=== PATIENT | female | born 1985 | race Caucasian/White ===

== ENCOUNTER → 2018-04-03 13:42 | Outpatient (CLI) | payer BC, SELFPAY ==
[2018-04-08 14:21] LABS: HPV Reflexed? NOT INDICATED
== END ==
PROVIDERS: Visit Provider Obstetrics & Gynecology
DX: Z12.4 Encounter for screening for malignant neoplasm of cervix (principal)
CPT/HCPCS: 88175; G0145

== ENCOUNTER → 2019-10-01 13:22 | Outpatient (CLI) | payer BC, SELFPAY ==
[2017-03-18 23:53] VITALS: BMI 28.4
[2019-10-01 15:40] LABS: Absolute Lymphocyte Count 1.91 X10^3/uL (0.83-4.51); Absolute Neutrophil Count 8.7 X10^3/uL (2.0-7.7); Basophil# 0.05 X10^3/uL; Basophil% 0.4 % (0-1); Eosinophils% 1.7 % (0-5); Hematocrit 41.7 % (37-47); Hemoglobin 13.7 g/dL (12.0-15.0); Lymphocyte # 1.91 X10^3/ul (4.0); Lymphocyte % 16.7 % (19-41); Mean Corp Hgb Conc 32.9 g/dL (32-36); Mean Corpuscular Hgb 30.4 pg (27.0-32.0); Mean Corpuscular Volume 92.7 fL (81-99); Mean Platelet Vol. 9.8 fl (6.2-12.0); Monocyte# 0.54 X10^3/uL; Monocyte% 4.7 % (0-10); NRBC Flagged by Analyzer 0 % (0-5); Neutrophil % 76.2 % (47-70); Platelet Count 236 K/mm3 (150-450); RBC Distribution Width CV 12.2 % (11.6-14.6); RBC Distribution Width SD 41.5 fl (35.1-43.9); White Blood Count 11.4 K/mm3 (4.4-11.0)
[2019-10-01 15:47] LABS: Color, Urine Yellow (Yellow); Glucose, Dipstick Normal (Normal); Ketone-Dipstick Negative (Negative); Leukocyte Esterase-Dipstick 25 /ul (Negative); Nitrite-Dipstick Negative (Negative); Occult Blood-Urine Negative /ul (Negative); Protein-Dipstick Negative (Negative); Specific Gravity, Urine 1.025 (1.002-1.030); Urine Bilirubin Dipstick Negative (Negative); Urine Clarity Turbid (Clear); Urine Urobilinogen Normal (Normal)
[2019-10-01 16:04] LABS: Thyroid Stim Hormone (TSH) 1.09 uIU/mL (0.358-3.74)
[2019-10-01 16:31] LABS: Amphetamine Urine VISTA NEGATIVE (<1000 ng/mL); Barbiturate Urine VISTA NEGATIVE (< 200 ng/mL); Benzodiazepine Urine VISTA NEGATIVE (< 200 ng/mL); Cocaine Urine VISTA NEGATIVE (< 300 ng/mL); Ecstacy Urine VISTA NEGATIVE (< 500 ng/mL); Methadone Urine VISTA NEGATIVE (< 300 ng/mL); PCP Urine VISTA NEGATIVE (< 25 ng/mL); THC Urine VISTA NEGATIVE (< 50 ng/mL); Vista UDS pH Range 5
[2019-10-01 16:33] LABS: HIV - WCH Non-Reactive (Nonreactive); Hepatitis B Surface Antigen Non-Reactive (Nonreactive); Hepatitis C Antibody Non-Reactive (Nonreactive)
[2019-10-02 02:05] LABS: Prenatal RPR NONREACTIVE (NONREACTIVE)
== END ==
PROVIDERS: Visit Provider Obstetrics & Gynecology
DX: Z11.3 Encounter for screening for infections with a predominantly sexual mode of transmission (principal)
CPT/HCPCS: 36415; 80307; 81002; 84443; 85025; 86703; 86762; 86803; 87340

== ENCOUNTER → 2020-02-18 10:12 | Outpatient (CLI) | payer BC, SELFPAY ==
[2017-03-18 23:53] VITALS: BMI 28.4
[2020-02-18 11:39] LABS: Glucose Challenge Gest 1H 50g 91 mg/dL (70-140)
[2020-02-18 11:40] LABS: Hematocrit 34.6 % (37-47); Hemoglobin 11.6 g/dL (12.0-15.0); Mean Corp Hgb Conc 33.5 g/dL (32-36); Mean Corpuscular Volume 95.3 fL (81-99); Mean Platelet Vol. 9.9 fl (6.2-12.0); Platelet Count 202 K/mm3 (150-450); RBC Distribution Width CV 13.1 % (11.6-14.6); Red Blood Count 3.63 M/mm3 (4.2-5.4)
== END ==
PROVIDERS: Visit Provider Obstetrics & Gynecology
DX: Z34.83 Encounter for supervision of other normal pregnancy, third trimester (principal)
CPT/HCPCS: 36415; 82950; 85027

== ENCOUNTER → 2020-04-13 | Outpatient (CLI) | payer BC, SELFPAY ==
[2017-03-18 23:53] VITALS: BMI 28.4
== END | disposition home or self-care (01) ==
PROVIDERS: Visit Provider Obstetrics & Gynecology
DX: Z34.83 Encounter for supervision of other normal pregnancy, third trimester (principal); Z36.85 Encounter for antenatal screening for Streptococcus B
CPT/HCPCS: 87081

== ENCOUNTER 2020-05-06 17:15 | Inpatient (IN) | payer BC, SELFPAY ==
[2020-05-06] VITALS (34 sets, daily range): BP systolic 104–144; BP diastolic 52–85; PULSE 75–100; RESP 16; TEMP 36.9–37.2; O2SAT 97–99; BMI 29.8
--- NOTE | 2020-05-06 17:22 | PCM.HPOB.BLA ---
History and Physical Date of Admission: 05/06/20 Chief complaint: Contractions History of present illness: 34-year-old G4, P3 at 39 weeks and 4 days with LUIS 05/10/2019 1 x 12-week ultrasound arrives with contractions. Denies headache, visual changes, nausea vomiting, chest pain, shortness of breath, right upper quadrant pain. Patient states good movement. Obstetric history: G1 term primary G2: Term G3: Term G4: Current Past medical history: Anxiety Medications: Zoloft, vitamin Past surgical history: Primary , wisdom teeth extraction Allergies: Paxil Social history: Denies smoking, alcohol use, drug use Family history: Denies a history of DVT or PE Review of systems: Besides the above pertinent positives a full review of systems was performed and found to be negative Physical exam: Vital Signs Pulse BP 05/06/20 16:20 99 135/85 H General: Normal-appearing no acute distress HEENT: Normocephalic atraumatic no cervical lymphadenopathy Cardiac/respiratory: Nonlabored breathing, no use of accessory muscles Abdomen: Soft, nontender, gravid Extremities: No peripheral edema normal peripheral pulses Neurologic: Grossly intact Psych: Normal affect normal demeanor nonpressured speech Assessment plan: 34-year-old G4, P3 at 39 weeks and 4 days in labor, for epidural and AROM -Admit wounds failure -CEFM -GBS negative -Routine orders -Anesthesia to see
[2020-05-06] MEDS: Lactated Ringers 1,000 ML 999 ML IV (17:35)
[2020-05-06 17:47] LABS: Absolute Lymphocyte Count 1.97 X10^3/uL (0.83-4.51); Basophil# 0.05 X10^3/uL; Basophil% 0.3 % (0-1); Eosinophil# 0.23 X10^3/uL; Eosinophils% 1.5 % (0-5); Hematocrit 33.3 % (37-47); Hemoglobin 11.2 g/dL (12.0-15.0); Lymphocyte # 1.97 X10^3/ul (4.0); Lymphocyte % 12.7 % (19-41); Mean Corp Hgb Conc 33.6 g/dL (32-36); Mean Corpuscular Hgb 31.9 pg (27.0-32.0); Mean Corpuscular Volume 94.9 fL (81-99); Mean Platelet Vol. 9.9 fl (6.2-12.0); Monocyte# 0.96 X10^3/uL; Monocyte% 6.2 % (0-10); NRBC Flagged by Analyzer 0 % (0-5); Neutrophil # 11.99 X10^3/uL (2.7-7.7); Neutrophil % 77.6 % (47-70); Platelet Count 209 K/mm3 (150-450); RBC Distribution Width SD 44.9 fl (35.1-43.9); Red Blood Count 3.51 M/mm3 (4.2-5.4); White Blood Count 15.5 K/mm3 (4.4-11.0)
[2020-05-06] MEDS: Lactated Ringers 500 ML 200 ML IV (18:36)
--- NOTE | 2020-05-06 19:27 | PN.OBGYN_ITS ---
Subjective: Now comfortable with epidural - Physical Exam Vitals/I&O's: Vital Signs Temp Pulse BP Pulse Ox 98.5 F 80 104/62 99 05/06/20 19:18 05/06/20 19:16 05/06/20 19:16 05/06/20 19:13 Weight: 179 lb 6.4 oz Body Mass Index (BMI) 29.8 General: Alert, Oriented x3, Cooperative, No apparent distress HEENT: Atraumatic, PERRLA, Normocephalic Oral: Moist Mucosa Neck: Supple Extremities: No clubbing, No cyanosis, No edema Neurological: Neuro grossly intact Psych/Mental Status: Normal Affect, Appropriate, Alert and oriented to time, place, person, mood and affect Microbiology Past 72 Hours 05/06/20 17:35 Mucosa - Nose SARS-CoV-2 Antigen (Rapid) - Final Laboratory Results 05/06/20 17:35: WBC 15.5 H, RBC 3.51 L, Hgb 11.2 L, Hct 33.3 L, MCV 94.9, MCH 31.9, MCHC 33.6, RDW Std Deviation 44.9 H, RDW Coeff of Stone 13.0, Plt Count 209, MPV 9.9, Immature Gran % (Auto) 1.700 H, Neut % (Auto) 77.6 H, Lymph % (Auto) 12.7 L, [place] % (Auto) 6.2, Eos % (Auto) 1.5, Baso % (Auto) 0.3, Absolute Neuts (auto) 12.0 H, Absolute Lymphs (auto) 1.97, Nucleated RBC % 0 05/06/20 17:35: Blood Type A POSITIVE, Antibody Screen NEGATIVE Current Medications Acetaminophen (Acetaminophen 500 Mg Tablet) 500 - 1,000 mg PO Q6H PRN PRN PRN Reason: Pain Score 1-3 Al Hydroxide/Mg Hydroxide (Mag Hydrox/Al Hydrox/Simeth 30 Ml Udc) 15 - 30 ml PO Q4H PRN PRN PRN Reason: INDIGESTION Citric Acid/Sodium Citrate (Sodium Citrate/Citric Acid 30 Ml Udc) 30 ml PO X1 PRN PRN Reason: Section Ephedrine Sulfate (Ephedrine Sulfate 50 Mg/Ml Ampul) 10 mg IV Q10M PRN PRN Reason: hypotension Ephedrine Sulfate (Ephedrine Sulfate 50 Mg/Ml Ampul) 10 mg IM Q30M PRN PRN Reason: hypotension Fentanyl Citrate (Fentanyl 100 Mcg/2 Ml Ampul) 25 - 50 mcg IV Q2H PRN PRN PRN Reason: Pain Score 4-10 Fentanyl/Bupivacaine/Sodium Chlor (Fentanyl-Bupivacaine (Epidural) 100 Ml Bag) 0 ml EPIDURAL UD ZOE; Protocol Lactated Ringer's () 500 mls @ 999 mls/hr IV .Q31M PRN PRN Reason: Epidural Lactated Ringer's () 500 mls @ 999 mls/hr IV .Q31M PRN PRN Reason: Corrective Measures Lactated Ringer's () 1,000 mls @ 50 mls/hr IV .Q20H ZOE Nalbuphine HCl (Nalbuphine 10 Mg/Ml Ampul) 5 mg IV Q3H PRN PRN PRN Reason: ITCHING Naloxone HCl (Naloxone 0.4 Mg/Ml Syringe) 0.02 mg IV Q1M PRN PRN Reason: RR <10 and pt unresponsive Ondansetron HCl (Ondansetron 4 Mg/2 Ml Vial) 4 mg IV Q4H PRN PRN PRN Reason: NAUSEA Prochlorperazine Edisylate (Prochlorperazine 10 Mg/2 Ml Vial) 10 mg IV Q6H PRN PRN PRN Reason: NAUSEA Sodium Chloride (0.9% Saline Lock 10 Ml Syringe) 10 - 40 ml IV X1 PRN PRN Reason: SALINE FLUSH Medical Necessity - Tobacco Use Smoking Status: Never smoker Assessment/Plan All Active Problems (vaginal after ) (Acute) 39 weeks gestation of (Acute) Encounter for trial of labor (Acute) Patient seen and examined. AROM clear fluid. heart tracing 130s/moderate variability/positive accelerations/negative decelerations toco every 2 to 5 minutes category 1 tracing. We will continue current management and augment with Pitocin if needed
[2020-05-06] MEDS: fentaNYL-bupivacaine (epidural) 100 ML BAG EPIDURAL (19:36)
[2020-05-06] MEDS: Lactated Ringers 1,000 ML 200 ML IV (19:42)
[2020-05-06] MEDS: Oxytocin 30 units/NS 500 ml 30 UNITS/500 ML IV.SOLN 334 UNITS IV (20:19)
--- NOTE | 2020-05-06 20:26 | PCM.OPRPT ---
Vaginal Delivery Date of Procedure: 05/06/20 Pre-Operative Diagnosis: Term, labor, trial of labor after section Post-Operative Diagnosis: Term, labor, vaginal after Type of Anesthesia: Epidural Description of Procedure: of a viable female infant, vertex PAUL. Head and shoulders delivered with ease. Cord cut and clamped. Baby handed off to nursing. Placenta delivered via cord traction and fundal massage. No lacerations noted. EBL 250 cc Apgars 8/9
--- NOTE | 2020-05-06 20:28 | DCINST_ITS ---
Discharge Diet: No Restrictions Discharge Activity: Return to Normal Activity, May Drive, May Shower May resume sexual activity in: 4-6 weeks Call your doctor if your incision/area has: Continuous Slow Oozing, Foul Smelling Discharge Call your doctor if you observe: Fever of 101 or Higher, Shortness of breath, Chest pain Additional Instructions: If you experience any of the following, contact your healthcare provider. * Bleeding that soaks a pad every hour for 2 hours * Fever 100.4 or higher * Unrelieved incision or abdominal pain * Swelling, redness, discharge or bleeding from your incision or episiotomy site * Your incision begins to separate * Problems urinating (including inability to urinate or burning while urinating). * Visual changes * Severe headache * Flu-like symptoms * Pain or redness in one of both of your breasts * Pain, warmth, tenderness or swelling in your legs, especially the calf area * Frequent nausea and vomiting * Symptoms of depression or anxiety If you experience any of the following, call 911 or go to the nearest Emergency Room. * Chest pain * Problems breathing * Seizure activity * Partial or complete paralysis of a body part, slurred speech, weakness or drooping of the face, or a sudden inability to walk or hold your balance Allergies/Adverse Reactions: Allergies cetyl alcohol [From Cetaphil] Allergy (Verified 05/06/20 19:38) Hives paraben [From Cetaphil] Allergy (Verified 05/06/20 19:38) Hives pineapple Allergy (Verified 05/06/20 19:38) Vomiting propylene glycol [From Cetaphil] Allergy (Verified 05/06/20 19:38) Hives skin cleanser [From Cetaphil] Allergy (Verified 05/06/20 19:38) Hives soap [From Cetaphil] Allergy (Verified 05/06/20 19:38) Hives sodium lauryl sulfate [From Cetaphil] Allergy (Verified 05/06/20 19:38) Hives stearyl alcohol [From Cetaphil] Allergy (Verified 05/06/20 19:38) Hives Medications to take at Discharge Vits [Prenatabs FA ] 1 tablet PO DAILY 01/26/13 Sertraline HCl [Zoloft] 25 mg PO 05/06/20 Please Follow Up With: Wilian Cotto MD When: 4 to 6 weeks Primary Care Physician: Care Physician,No Primary [Primary Care Provider] - Test Results: Test results from this visit will be discussed in further detail at your follow- up appointment, if applicable.
[2020-05-07] VITALS (10 sets, daily range): BP systolic 114–130; BP diastolic 64–81; PULSE 65–82; RESP 16–20; TEMP 36.4–36.8; O2SAT 97–98
[2020-05-07] MEDS: Ibuprofen 600 MG Tablet PO (08:04)
--- NOTE | 2020-05-07 10:17 | PCM.PN.OB ---
Subjective: No overnight complaints. Pain well controlled. Minimal lochia. - Physical Exam Vitals/I&O's: Vital Signs Temp Pulse Resp BP Pulse Ox 98.2 F 77 18 114/64 97 05/07/20 08:15 05/07/20 08:15 05/07/20 08:15 05/07/20 08:15 05/07/20 08:15 Oxygen Delivery Method Room Air Weight: 179 lb 6.4 oz Body Mass Index (BMI) 29.8 Intake and Output for Last 24 Hours 05/05/20 05/06/20 05/07/20 23:59 23:59 23:59 Intake Total 1753.33 / 1753.33 Output Total 300 / 300 950 / 950 Balance 1453.33 / 1453.33 -950 / -950 General: Alert, Oriented x3, Cooperative, No apparent distress HEENT: Atraumatic, Normocephalic Oral: Moist Mucosa Neck: Supple Abdomen: Soft, Non Tender, - - Uterus firm and below umbilicus Extremities: No clubbing, No cyanosis, No edema Neurological: Neuro grossly intact Psych/Mental Status: Normal Affect, Appropriate, Alert and oriented to time, place, person, mood and affect Microbiology Past 72 Hours 05/06/20 17:35 Mucosa - Nose SARS-CoV-2 Antigen (Rapid) - Final Laboratory Results 05/06/20 17:35: WBC 15.5 H, RBC 3.51 L, Hgb 11.2 L, Hct 33.3 L, MCV 94.9, MCH 31.9, MCHC 33.6, RDW Std Deviation 44.9 H, RDW Coeff of Stone 13.0, Plt Count 209, MPV 9.9, Immature Gran % (Auto) 1.700 H, Neut % (Auto) 77.6 H, Lymph % (Auto) 12.7 L, [place] % (Auto) 6.2, Eos % (Auto) 1.5, Baso % (Auto) 0.3, Absolute Neuts (auto) 12.0 H, Absolute Lymphs (auto) 1.97, Nucleated RBC % 0 05/06/20 17:35: Blood Type A POSITIVE, Antibody Screen NEGATIVE Current Medications Acetaminophen (Acetaminophen 500 Mg Tablet) 1,000 mg PO Q8H PRN PRN PRN Reason: Pain Score 1-3 Bisacodyl (Bisacodyl 10 Mg Suppository) 10 mg RC UD PRN PRN Reason: If no BM Dibucaine (Dibucaine 30 Gm Tube) 1 applic TOPICAL TID PRN PRN; Protocol PRN Reason: Discomfort Hydrocortisone (Hydrocortisone 2.5% Crm) 1 applic TOPICAL TID PRN PRN; Protocol PRN Reason: Discomfort Ibuprofen (Ibuprofen 600 Mg Tablet) 600 mg PO Q6H PRN PRN PRN Reason: Pain Score 1-3 Last Admin: 05/07/20 08:04 Dose: 600 mg Documented by: Ondansetron HCl (Ondansetron 4 Mg/2 Ml Vial) 4 mg IV Q4H PRN PRN PRN Reason: Nausea Senna/Docusate Sodium (Senna/Docusate Sodium 1 Tablet) 1 - 2 tablet PO DAILY PRN PRN PRN Reason: Constipation Simethicone (Simethicone 80 Mg Tablet) 80 mg PO PCHS PRN PRN Reason: Indigestion/Stomach pain Sodium Chloride (0.9% Saline Lock 10 Ml Syringe) 5 - 15 ml IV UD PRN PRN Reason: SALINE FLUSH Medical Necessity - Tobacco Use Smoking Status: Never smoker Assessment/Plan All Active Problems (vaginal after ) (Acute) 39 weeks gestation of (Acute) Encounter for trial of labor (Acute) day 1. History of depression, on Zoloft. 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
--- NOTE | 2020-05-07 16:30 | CASEMGMT ---
Social Work Note - Labor and Delivery Unit Social Work Brief Assessment completed. Refer documentation below for further details. Date of Referral/Notification: 05.07.2020 Time of Referral: 0015 Referred By: Dr. Wilian Cotto Reason for Referral: History of PPD, anxiety, currently on Zoloft. Date of Intervention: 05.07.2020 Time of Intervention: 1630 Informant: Medical record and patient/mother of baby (MOB) Pat Saba; father of baby (FOB) Ryan Saba also present for part of conversation. History: ANITA is a 34 year old female, to 4 after delivering baby girl Puja Saba admission. care started in the first trimester and regular thereafter. FOB is the father to all four children. Besides Puja, the other children at home are Samreen (born 09/2014), Flaquita (born 01/2013), and Jatin (born 02/2017). MOB reports home situation is safe and adequate. FOB works in finance at [employer]. MOB is college educated, with a degree in teaching. At this point MOB works stays at home. No issues with transportation. MOB reports to have needed supplies for baby including a safe sleep space, car seat, clothing, diapers, wipes. MOB reports to have a good support system from (denies any form of abuse in this relationship), from in-laws who live locally, and then from MOB?s family who live out of town near [place], [place]. Additional support from friends and tenriism. MOB denies any history of substance use or abuse issues. Negative maternal drug screen on 09.30.2020. MOB with history of depression, anxiety, and depression and anxiety. Has been to various counselors in the past, with the most recent being Sushma Castell[facility] at [facility]; not current with counseling. MOB reports to be on Zoloft, which was initiated during this . MOB reports went on the Zoloft after Jatin was born, found this helpful, then when went off of the medication struggled. MOB reports initiation of the medication again during has made a positive impact. MOB endorses having a lot of worry, to the point of obsessing when on medications. MOB with a score of 9 on the [place] depression scene on 10.01.2019, and today score is a 3 (see attached link). Denies any suicidal thoughts, plans, intent, or actions. Admits has wondered in the past about , fleeting thoughts without planning, intent, or action. Describes the thoughts of more of a wonder, rather than a desire take her own life. Assessment: Met with MOB and FOB in room together and then alone with the MOB. While MOB and FOB together, both actively engaged in conversation. FOB presenting as supportive of the MOB, offering support regarding depression/anxiety and verbalizing willingness to help MOB with the kids. 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 MOB does endorse having some worry about when FOB returns to work, and goes back to the office. FOB will be off for an extended paternity leave for 6 weeks and then has 6 additional weeks to use at other times. FOB has been working from home since the COVID pandemic started. FOB reports that once back to work, if aware of times that MOB may need to do something or needs a break can adjust work schedule. MOB's parents are here currently helping with the childrne while MOB and FOB are at the hospital. Supportive listening and encouragement given to MOB. MOB reports plan to stay on medication for depression/anxiety and reports has come to accept that is okay to take and that this is a helpful intervention for the MOB. MOB also agrees to return to counseling should symptoms of PPD/PPA surface and become distressing. MOB reports to have all needed supplies and to feel a loving connection with the baby. Observed both MOB and FOB interact with the baby, and both appropriate, gentle and attentive. No voiced concerns by the nursing staff regarding parent/child interactions or bonding. Provided MOB with resource for mood and anxiety disorders which include local, national, and online resources. MOB expressed appreciation for information provided. Plan: MOB and baby to discharge home when ready. FOB will be at home to help with transition home. MOB plans to stay on antidepressant medication and has counseling resources if needed. -MARCELINO Flores, EDU
== END 2020-05-07 21:20 | disposition home or self-care (01) | DRG 807 ==
LOC: WPOUT 17:19 → WP 17:19
PROVIDERS: Admitting Provider Obstetrics & Gynecology; Referring Provider Obstetrics & Gynecology; Visit Provider Obstetrics & Gynecology
DX: O34.219 Maternal care for unspecified type scar from previous cesarean delivery (principal); Z37.0 Single live birth; Z3A.39 39 weeks gestation of pregnancy
CPT/HCPCS: 59025; 59050; 85025; 86850; 86900; 86901; 87426; 99218; J7120; G0378